=== PATIENT | female | born 1980 | race Caucasian/White ===

== ENCOUNTER 2017-03-27 17:37 | Emergency (ER) | payer MEDICAID ==
[~2017-03-27] VITALS: Ht 154.9 cm; Wt 54.5 kg
[~2017-03-27 17:37] MED LIST: CIPR500T4 PO; HYDR-3498 PO; IBUP-1542 PO; PHEN-538; [UNRECOGNIZED DRUG - CODE]
[2017-03-27 17:43] VITALS: Ht 154.9 cm; Wt 54.5 kg
[2017-03-27] MEDS ORDERED: IBUPROFEN 600 MG TAB PO ONE (19:00)
[2017-03-27 19:17] LABS: URINE BLOOD (Dip) POC Trace-intact (NEGATIVE)
[2017-03-27 19:32] LABS: ADD SCAN DIFF NO
[2017-03-27 19:40] LABS: BASOPHILS % 0.5 % (0.0-2.0); EOSINOPHILS # 0.1 10^3/ul (0.0-0.5); EOSINOPHILS % 1.2 % (0.0-7.0); HEMATOCRIT 39.4 % (37.0-47.0); HEMOGLOBIN 12.8 g/dl (12.0-16.0); LYMPHOCYTES # 2.2 10^3/ul (0.8-2.9); LYMPHOCYTES % 27.2 % (15.0-51.0); MEAN CORPUSCULAR HEMOGLOBIN 28.3 pg (29.0-33.0); MEAN CORPUSCULAR HGB CONC 32.5 g/dl (32.0-37.0); MONOCYTE # 0.7 10^3/ul (0.3-0.9); MONOCYTES % 8.1 % (0.0-11.0); NEUTROPHIL # 5.1 10^3/ul (1.6-7.5); NEUTROPHILS % 62.8 % (39.0-77.0); PLATELET COUNT 244 10^3/UL (140-415); RED BLOOD COUNT 4.53 10^6/ul (4.20-5.40); RED CELL DISTRIBUTION WIDTH 13.6 % (11.5-14.5); WHITE BLOOD COUNT 8.1 10^3/ul (4.8-10.8)
[2017-03-27 20:00] LABS: ALBUMIN 4.4 g/dl (3.3-4.9)
[2017-03-27 20:01] LABS: POTASSIUM 3.8 mmol/L (3.5-5.1)
[2017-03-27 20:03] LABS: ALBUMIN/GLOBULIN RATIO 1.37; BILIRUBIN,INDIRECT 0.2 mg/dl (0-1.1); BILIRUBIN,TOTAL 0.2 mg/dl (0.2-1.3); CREATININE 0.6 mg/dl (0.44-1.00); TOTAL PROTEIN 7.6 g/dl (6.1-8.1)
[2017-03-27 20:04] LABS: CALCIUM 8.8 mg/dl (8.4-10.2)
--- NOTE | 2017-03-27 20:08 | RADRPT ---
PROCEDURE: CT Abdomen and Pelvis without contrast. CLINICAL INDICATION: Abdominal pelvic pain. Bilateral flank pain. History of previous urolithias is. TECHNIQUE: CT scan of the abdomen and pelvis without contrast was performed on a multidetector hig h-resolution CT scanner. The patient was scanned without intravenous contrast. Coronal and sagittal reformatted images were obtained from the axial source images. Images were reviewed on a high-resol [employer] PACS workstation. The total exam CTDI equals 4.82 mGy and the total exam DLP equals 258.45 mGy -cm. One or more of the following dose reduction techniques were used: - Automated exposure control. - Adjustment of the mA and/or kV according to patient size. - Use of iterative reconstruction technique. COMPARISON: CT scan dated 11/25/2015 FINDINGS: CT abdomen: The lung bases are clear. The heart size is normal, without pericardial thickening or effusion. Th e liver is normal in size and density without focal mass or intrahepatic biliary dilatation. Small c yst is seen in the left lobe of the liver. The spleen is normal in size and homogeneous in density. The stomach is partially collapsed, but is grossly unremarkable. The pancreas as visualized is nor mal. The gallbladder and biliary tree are unremarkable and there is no evidence for biliary dilatat ion. The adrenal glands are symmetric and normal. The kidneys are symmetrically unremarkable as we ll. Tiny 2 mm punctate calculus is seen in the lower pole moiety of the right kidney, nonobstructiv e in nature. No obstructive uropathy or mass lesion is seen. The aorta is of normal caliber. There is no retroperitoneal lymphadenopathy. The cady hepatis reg ion is clear. The bowel and mesentery, as visualized, are equally unremarkable. CT pelvis: The small bowel loops situated within the pelvis are unremarkable. The appendix is normal. The pelvi c organs are normal. The pelvic sidewalls and inguinal regions are clear. The sigmoid colon and re ctum are unremarkable. No mass or adenopathy is seen. No free fluid is present. No acute inflammati on is identified at this time. The surrounding osseous structures are unremarkable. No osteolytic or osteoblastic lesion is detect ed. IMPRESSION: 1. Tiny subtle punctate 2 mm calculus in the lower pole of the right kidney, smaller in size and mu ch less conspicuous when compared to the older prior study. 2. No other renal or ureteral calculus is seen. No obstructive uropathy is identified. 3. Elsewhere, the remainder of the CT abdomen pelvis is stable and unremarkable. RPTAT: HMJB .Salomón Oliveira MD, Date Time Electronically viewed and signed by .Salomón Oliveira MD, on 03/27/2017 20:07 .B/
[2017-03-27] MEDS ORDERED: IBUP-1542 PO (20:13)
--- NOTE | 2017-03-28 20:41 | ERD ---
ER Documentation Chief Complaint Date/Time DATE: 03/28/17 TIME: 20:36 Chief Complaint BACK PAIN X 1 WEEK HPI This is a 36-year-old female presenting to the emergency department for bilateral flank pain 1 week. Patient states pain feels sharp and rates pain 8/ 10 to bilateral flanks. States pain does not radiate. No numbness or tingling to extremities. No loss of sensation. No saddle anesthesia. No fevers or chills. Denies nausea, vomiting, diarrhea or abdominal pain. Denies chest pain , shortness of breath, difficulty breathing or wheezing. Denies dysuria, hematuria, urinary frequency or urinary urgency. No urinary retention or difficulty urinating. ROS All systems reviewed and are negative except as per history of present illness. Medications Home Meds Active Scripts Ibuprofen* (Motrin*) 600 Mg Tab, 600 MG PO Q6, #10 TAB Prov:RENE YIP NP 03/27/17 Ciprofloxacin Hcl* (Ciprofloxacin Hcl*) 500 Mg Tablet, 500 MG PO BID for 3 Days , TAB Prov:DEMETRIUS SCHAEFFER PA-C 11/25/15 Ibuprofen* (Motrin*) 600 Mg Tab, 600 MG PO Q6, #20 TAB Prov:DEMETRIUS SCHAEFFER PA-C 11/25/15 Hydrocodone Bit-Acetaminophen* ([place]*) 5-325 Mg Tab, 1 TAB PO Q6 Y for PAIN, # 7 TAB Prov:DEMETRIUS SCHAEFFER PA-C 11/25/15 Reported Medications Ciprofloxacin Hcl (Cipro) 250 Mg Tablet 07/29/10 Phenazopyridine Hcl* (Pyridium*) 200 Mg Tab 07/29/10 Allergies Allergies: Coded Allergies: No Known Allergy (Verified , 11/25/15) PMhx/Soc Nephrolithiasis History of Surgery: No Anesthesia Reaction: No Hx Neurological Disorder: No Hx Respiratory Disorders: No Hx Cardiac Disorders: No Hx Psychiatric Problems: No Hx Miscellaneous Medical Probl: Yes Hx Alcohol Use: No Hx Substance Use: No Hx Tobacco Use: No Smoking Status: Never smoker Physical Exam Vitals Vital Signs Date Time Temp Pulse Resp B/P Pulse Ox O2 Delivery O2 Flow Rate FiO2 03/27/17 17:43 98.3 88 19 110/66 98 Physical Exam Const: Alert, no acute distress, smiling during exam Head: Atraumatic Eyes: Normal Conjunctiva ENT: Normal External Ears, Nose and Mouth. Neck: Full range of motion..~ No meningismus. Resp: Clear to auscultation bilaterally. No wheezing, rhonchi or crackles. Cardio: Regular rate and rhythm, no murmurs Abd: Soft, non tender, non distended. Normal bowel sounds Skin: No petechiae or rashes Back: No midline or flank tenderness. No CVA tenderness Ext: No cyanosis, or edema Neur: Awake and alert Psych: Normal Mood and Affect Result Diagram: 03/27/17189903/27/171899 Results 24 hrs Laboratory Tests Test 03/27/17 19:00 03/27/17 19:20 White Blood Count 8.110^3/ul Red Blood Count 4.5310^6/ul Hemoglobin 12.8g/dl Hematocrit 39.4% Mean Corpuscular Volume 87.0fl Mean Corpuscular Hemoglobin 28.3pg Mean Corpuscular Hemoglobin Concent 32.5g/dl Red Cell Distribution Width 13.6% Platelet Count 78872^3/UL Mean Platelet Volume 10.0fl Neutrophils % 62.8% Lymphocytes % 27.2% Monocytes % 8.1% Eosinophils % 1.2% Basophils % 0.5% Nucleated Red Blood Cells % 0.0/100WBC Neutrophils # 5.110^3/ul Lymphocytes # 2.210^3/ul Monocytes # 0.710^3/ul Eosinophils # 0.110^3/ul Basophils # 0.010^3/ul Nucleated Red Blood Cells # 0.010^3/ul Sodium Level 145mmol/L Potassium Level 3.8mmol/L Chloride Level 106mmol/L Carbon Dioxide Level 26mmol/L Anion Gap 17 Blood Urea Nitrogen 13mg/dl Creatinine 0.60mg/dl Glucose Level 78mg/dl Calcium Level 8.8mg/dl Total Bilirubin 0.2mg/dl Direct Bilirubin 0.00mg/dl Indirect Bilirubin 0.2mg/dl Aspartate Amino Transf (AST/SGOT) 18IU/L Alanine Aminotransferase (ALT/SGPT) 30IU/L Alkaline Phosphatase 70IU/L Total Protein 7.6g/dl Albumin 4.4g/dl Globulin 3.20g/dl Albumin/Globulin Ratio 1.37 Bedside Urine pH (LAB) 6.0 Bedside Urine Protein (LAB) Negative Bedside Urine Glucose (UA) Negative Bedside Urine Ketones (LAB) Negative Bedside Urine Blood Trace-intact Bedside Urine Nitrite (LAB) Negative Bedside Urine Leukocyte Esterase (L Negative Current Medications Medications (Trade) Dose Ordered Sig/Rodney Route PRN Reason Start Time Stop Time Status Last Admin Dose Admin Ibuprofen (Motrin) 600 mg ONCE ONCE PO 03/27/17 19:00 03/27/17 19:01 DC 03/27/17 18:58 Procedures/MDM MDM: 36-year-old female presents emergency department for bilateral flank pain 1 week. Patient has history of nephrolithiasis in the past 6 months. Patient denies dysuria, hematuria, urinary frequency, urinary urgency or difficulty urinating. Patient given ibuprofen 600 mg p.o. while in the ED. Labs are unremarkable. Creatinine is normal and within normal limits. White blood cell is normal within normal limits. Urine shows trace blood otherwise unremarkable. Vital signs are stable. Patient states pain has improved after ibuprofen. No active vomiting while in ED. Denies abdominal pain, nausea, vomiting or diarrhea. Differential diagnosis includes but not limited to acute appendicitis, diverticulitis, diverticulosis, bowel obstruction, constipation, infectious colitis, irritable bowel syndrome, inflammatory bowel disease, viral gastroenteritis, abdominal aortic aneurysm, food intolerance, celiac disease, UTI, pyelonephritis, nephrolithiasis, acute urinary retention or colorectal cancer. I doubt any emergent conditions such as appendicitis, diverticulitis, bowel obstruction, abdominal aortic aneurysm at this time due to normal vital signs and normal lab results. Patient is appropriate for outpatient management and will be discharged with prescription for ibuprofen. Instructed patient to follow-up with primary care provider in the next 2-3 days for reassessment and additional management. Return to ED for any high fever, chest pain, difficulty breathing, shortness breath, wheezing, vomiting, diarrhea, abdominal pain or any new or worsening symptoms. Patient verbalizes understanding. All questions answered at discharge. Departure Diagnosis: Primary Impression: Flank pain Condition: Stable Patient Instructions: Flank Pain, Uncertain Cause Referrals: [facility] Usted se bledsoe hecho un examen mdico de control que le indica que no est en scott condicin que requiera tratamiento urgente en el Departamento de Emergencia. Un estudio ms profundo y el tratamiento de lemus condicin pueden esperar sin ningn riesgo hasta que usted sea atendida/o en el consultorio de lemus mdico o scott cl arnold. Es responsabilidad suya arreglar scott ailyn para el seguimiento del domingo. MANEJO DE CONDICIONES NO URGENTES EN EL FUTURO 1) Si usted tiene un mdico de atencin primaria: Usted debera llamar a lemus mdico de atencin primaria antes de venir al departamento de emergencia. Despus de las horas de consultorio, lemus doctor o lemus asociado/a est disponible por telfono. El mdico o enfermero de terrance en el servicio telefnico puede asesorarle por jeffrey medio para atender el problema, o domingo contrario se puede programar scott ailyn. 2) Si usted no tiene un mdico de atencin primaria: Llame al mdico o clnica de referencia que aparece abajo nancy las horas de consultorio para hacer scott ailyn para que le vean. CLINICAS: [facility] [phone] [facility] [phone] [facility]. [facility] [phone] [facility]. [place] [id number] [phone] [facility] [place] [phone] [facility]. [phone] [address] [facility] () Jorge se bledsoe hecho un examen mdico de control que le indica que no est en scott condicin que requiera tratamiento urgente en el Departamento de Emergencia. Un estudio ms profundo y el tratamiento de lemus condicin pueden esperar sin ningn riesgo hasta que usted sea atendida/o en el consultorio de lemus mdico o scott cl arnold. Es responsabilidad suya arreglar scott ailyn para el seguimiento del domingo. MANEJO DE CONDICIONES NO URGENTES EN EL FUTURO 1) Si usted tiene un mdico de atencin primaria: Usted debera llamar a lemus mdico de atencin primaria antes de venir al departamento de emergencia. Despus de las horas de consultorio, lemus doctor o lemus asociado/a est disponible por telfono. El mdico o enfermero de terrance en el servicio telefnico puede asesorarle por jeffrey medio para atender el problema, o domingo contrario se puede programar scott ailyn. 2) Si usted no tiene un mdico de atencin primaria: Llame al mdico o condado institucions de referencia que aparece abajo nancy las horas de consultorio para hacer scott ailyn para que le vean. SI USTED NO PUEDE PAGAR PARA LONNIE UN MEDICO puede ir a: [facility] [phone] [place] [address] [facility] [address] [place] [address] [facility] [address] [place] [address] [facility] [address] [place], [place] [id number] Additional Instructions: Llame al doctor MAANA y elyse scott AILYN PARA DENTRO DE 2-3 STRONG.Dgale a la secretaria que nosotros le instruimos hacer esta ailyn.Avise o llame si lemus condicin se empeora antes de la ailyn. Regresa aqui si peor o no mejor. Regresar a ED por fiebre alejandra, dolor en el pecho, dificultad para respirar, respiracin entrecortada, sibilancias, vmitos, diarrea, dolor abdominal o cualquier sntoma nuevo o que empeora. RENE YIP NP March 28, 2017 20:41
== END 2017-03-27 20:24 | disposition home or self-care (01) ==
LOC: FTE 17:37
DX: R10.9 Unspecified abdominal pain (principal); R10.2 Pelvic and perineal pain
CPT/HCPCS: 36415; 74176; 80053; 81003; 85025; Z7502; Z7610

== ENCOUNTER 2018-08-13 08:59 | Emergency (ER) | END 2018-08-13 10:35 | disposition home or self-care (01) ==